=== PATIENT | male | born 1975 | race Caucasian/White ===

== ENCOUNTER 2016-10-10 13:16 | Emergency (ER) | payer BC ==
[~2016-10-10] VITALS: Ht 175.3 cm; Wt 84.5 kg
[2016-10-10 13:20] VITALS: TEMP 36.5; Ht 175.3 cm; Wt 84.5 kg
[2016-10-10] MEDS ORDERED: LISI-461 PO (13:30)
[2016-10-10] MEDS ORDERED: SERT-234 PO (13:31)
[2016-10-10] MEDS ORDERED: ONDANSETRON INJ 2 MG/ML 2 ML VIAL IV STA (14:20)
[2016-10-10] MEDS ORDERED: SODIUM CHLORIDE 0.9% 1000ML 1,000 ML IV STA (14:20)
[2016-10-10] MEDS ORDERED: MoRPHine SULFATE 4 MG/ML 1 ML CARP\\VIAL ONE (14:28)
[2016-10-10] MEDS ORDERED: OPTIRAY 320 IV PRN (14:30)
[2016-10-10] MEDS ORDERED: MoRPHine SULFATE 10 MG/ML CARP/VIAL IV PRN (14:30)
[2016-10-10 14:41] LABS: BASO % 0.5 %; BASO ABS # 0.03 K/uL (0-0.2); COMPLETE YES; HEMATOCRIT 45.4 % (42-52); IG% 0.2 %; LYMPH % 26.5 %; LYMPH ABS # 1.76 K/uL (1.2-3.4); MEAN CELL VOLUME 88.8 fL (80-100); MEAN CORPUSCULAR HEMOGLOBIN 29.5 pg (25-34); MEAN CORPUSCULAR HGB CONC 33.3 g/dl (32-36); MEAN PLATELET VOLUME 10.6 fL (7.4-10.4); MONO % 7.7 %; NEUT % 62.1 %; PLATELET COUNT 205 K/uL (130-400); RED BLOOD COUNT 5.11 M/uL (4.7-6.1); WHITE BLOOD COUNT 6.65 K/uL (4.8-10.8)
[2016-10-10 14:59] LABS: BUN/CREATININE RATIO 9.4 (10-20); CALCIUM 8.6 mg/dl (8.5-10.1); CREATININE 1.2 mg/dl (0.60-1.40)
[2016-10-10 15:04] LABS: URINE APPEARANCE CLEAR (CLEAR); URINE BILIRUBIN NEG (NEG); URINE COLOR DK YELLOW; URINE NITRITE NEG (NEG); URINE SPECIFIC GRAVITY 1.026 (1.000-1.030); UROBILINOGEN NEG (NEG)
[2016-10-10 15:06] LABS: MANUAL MICROSCOPIC REQUIRED? NO; REVIEW REQ? NO
[2016-10-10 15:15] LABS: POTASSIUM 3.6 mmol/L (3.5-5.1)
--- NOTE | 2016-10-10 17:54 | DIAGNOSTIC IMAGING REPORT ---
CT OF THE ABDOMEN AND PELVIS WITH CONTRAST CLINICAL HISTORY: Abdominal pain. COMPARISON STUDY: None. TECHNIQUE: Following IV administration of 92 mL of Optiray-320, axial images of the abdomen and pelvis were obtained from the lung bases to the proximal femurs. Images were reviewed in the axial, sagittal, and coronal planes. IV contrast was administered without complication. Oral contrast was administered. CT DOSE: 394.18 mGy.cm FINDINGS: Lung bases are clear. The liver, spleen, adrenal glands, right kidney and pancreas are normal. A 3 mm hyperdensity within the upper aspect of the left renal sinus suggests a calculus. Excreted contrast could appear similar although is considered less likely. There are no ureteral calculi. There is no hydronephrosis. The caliber and wall thickness of small and large bowel are normal. The appendix is normal. There is no evidence for a bowel obstruction. There is no lymphadenopathy. Skeletal structures are unremarkable. Major vasculature of the abdomen and pelvis is patent. IMPRESSION: 1. No acute process within the abdomen or pelvis. Normal appendix. 2. Probable 3 mm left renal calculus. No ureteral calculi. Electronically signed by: Reji Babcock M.D. 10/10/2016 5:53 PM Dictated Date/Time: 10/10/2016 5:48 PM
[2016-10-10 18:52] VITALS: BP 130/71; PULSE 75; O2SAT 97
--- NOTE | 2016-10-10 22:10 | EMERGENCY ROOM VISIT NOTE ---
ED Visit Note First contact with patient: 14:09 Chief Complaint: Abdominal pain. History of Present Illness: Mr. Cr is a 41 year-old white male who ambulates into the ED complaining of right lower quadrant abdominal pain. Historically patient reports GERD symptoms which is easily controlled with OTC Nexium. He denies any previous abdominal surgeries. Patient reports he was awoken from sleep at approximately 6 AM, approximately 6ours before he arrived in the ED, with an acute onset of mild right lower quadrant abdominal pain just medial to McBurney's point. Since that time his pain has been constant but has gradually increased in intensity. Currently he describes his pain as a sharp/stabbing sensation. He currently rates his discomfort 7/10. His pain is slightly radiating through into the right lower back. His pain worsens with palpation. He has not identified any alleviating factors related to the pain. He has not taken medication for pain prior to arrival at the hospital. He reports intermittently he has been nauseated but has not vomited and he has been having a mild headache. Patient denies fevers, chills, sweats, skin eruptions, skin color changes, upper respiratory tract symptoms, shortness of breath, chest pain, diarrhea, constipation, rectal bleeding, black/tarry stools, urinary symptoms, hematuria, testicular pain, flank pain. Review of Systems: As noted above in history of present illness. All body systems were reviewed and found to be negative as noted above. Past Medical History: Hypertension. Current Medications: Lisinopril, Zoloft. Allergies to Medications: Patient denies. Social History: Patient is currently employed; he lives with his and feels safe in his home environment; patient denies tobacco use. Physical Examination: Vital Signs: Date Time Temp Pulse Resp B/P (MAP) Pulse Ox O2 Delivery O2 Flow Rate FiO2 10/10/16 18:52 75 18 130/71 97 10/10/16 17:10 67 18 118/80 98 Room Air 10/10/16 15:11 84 18 129/87 98 Room Air 10/10/16 14:13 74 10/10/16 13:20 36.5 102 18 155/104 97 Room Air GENERAL: 41-year-old male in mild to moderate distress due to pain, nontoxic- appearing, afebrile and hemodynamically stable. NEUROLOGICAL: Awake, alert and oriented to person, place and time. Answering questions appropriately and following commands. Normal gait. Good hand eye coordination. SKIN: Warm, dry and pink. No soft tissue eruptions or trauma noted. HEENT: Atraumatic and normocephalic. PERRLA. Sclera white and conjunctiva pink. Airway patent. Speech normal. No lymphadenopathy. Trachea midline. No jugular venous distention. BACK: No tenderness over the bony spine. No tenderness in the paraspinous muscles of the right lower back where he indicates his pain is radiating. No CVA tenderness. THORAX: Lungs sounds are clear to auscultation and equal bilaterally with symmetrical chest wall. No wheezing, rales or rhonchi. No crepitus, tenderness , subcutaneous air or deformities noted. HEART: Regular rate and rhythm. No gallops, rubs or murmurs are appreciated. ABDOMEN: Flat and soft with moderate tenderness over McBurney's point with minimal guarding. Positive Rosvig sign. Negative feel tap. Positive bowel sounds in all quadrants. No rigidity or organomegaly. EXTREMITIES: Moves all extremities well on command and with purpose. All distal neurovascular statuses are intact and equal bilaterally. ED Course: Patient is assessed as noted above. Patient's medication list was reviewed. Laboratory Testing: Test 10/10/16 13:50 10/10/16 14:40 Range/Units White Blood Count 6.65 4.8-10.8 K/uL Red Blood Count 5.11 4.7-6.1 M/uL Hemoglobin 15.1 14.0-18.0 g/dL Hematocrit 45.4 42-52 % Mean Corpuscular Volume 88.8 80-100 fL Mean Corpuscular Hemoglobin 29.5 25-34 pg Mean Corpuscular Hemoglobin Concent 33.3 32-36 g/dl Platelet Count 205 130-400 K/uL Mean Platelet Volume 10.6 7.4-10.4 fL Neutrophils (%) (Auto) 62.1 % Lymphocytes (%) (Auto) 26.5 % Monocytes (%) (Auto) 7.7 % Eosinophils (%) (Auto) 3.0 % Basophils (%) (Auto) 0.5 % Neutrophils # (Auto) 4.14 1.4-6.5 K/uL Lymphocytes # (Auto) 1.76 1.2-3.4 K/uL Monocytes # (Auto) 0.51 0.11-0.59 K/uL Eosinophils # (Auto) 0.20 0-0.5 K/uL Basophils # (Auto) 0.03 0-0.2 K/uL RDW Standard Deviation 42.4 36.4-46.3 fL RDW Coefficient of Variation 13.0 11.5-14.5 % Immature Granulocyte % (Auto) 0.2 % Immature Granulocyte # (Auto) 0.01 0.00-0.02 K/uL Sodium Level 144 136-145 mmol/L Potassium Level 3.6 3.5-5.1 mmol/L Chloride Level 107 98-107 mmol/L Carbon Dioxide Level 26 21-32 mmol/L Anion Gap 11.0 3-11 mmol/L Blood Urea Nitrogen 11 7-18 mg/dl Creatinine 1.20 0.60-1.40 mg/dl Est Creatinine Clear Calc Drug Dose 81.0 ml/min Estimated GFR () 86.5 Estimated GFR (Non- 74.7 BUN/Creatinine Ratio 9.4 10-20 Random Glucose 91 70-99 mg/dl Calcium Level 8.6 8.5-10.1 mg/dl Total Bilirubin 0.5 0.2-1 mg/dl Direct Bilirubin 0.1 0-0.2 mg/dl Aspartate Amino Transf (AST/SGOT) 17 15-37 U/L Alanine Aminotransferase (ALT/SGPT) 29 12-78 U/L Alkaline Phosphatase 60 45-117 U/L Total Protein 8.6 6.4-8.2 gm/dl Albumin 5.0 3.4-5.0 gm/dl Lipase 135 73-393 U/L Urine Color DK YELLOW Urine Appearance CLEAR CLEAR Urine pH 5.0 4.5-7.5 Urine Specific [place] 1.026 1.000-1.030 Urine Protein NEG NEG Urine Glucose (UA) NEG NEG Urine Ketones NEG NEG Urine Occult Blood NEG NEG Urine Nitrite NEG NEG Urine Bilirubin NEG NEG Urine Urobilinogen NEG NEG Urine Leukocyte Esterase NEG NEG Contrast Abdominal/Pelvic CT: Was reviewed by myself and read by the radiologist showing a 3 mm hyperdensity within the upper aspect of the left renal sinus suggestive of calculus, no ureter calculi, no hydronephrosis, normal -appearing liver, spleen, adrenal glands, right kidney and pancreas wall thickness in caliber of small and large bowel are normal. Normal-appearing appendix. No evidence of bowel obstruction. No lymphadenopathy, skeletal structures are unremarkable and major vascularity of the abdomen and pelvis is patent. Patient was hydrated with normal saline and he received a total of 8 mg of morphine IV for pain and 4 mg of Zofran IV. Patient was reassessed multiple times during his stay in the emergency department. Patient's case was reviewed with Dr. Bhakta; we agreed on diagnostic approach, treatment, disposition and plan. Patient was educated about today's findings and instructed on his treatment plan ; he verbalizes understanding and agreement with this plan. Clinical Impression: Acute right lower quadrant abdominal pain Decision-Making: Initially my differential diagnosis I considered appendicitis, constipation, bowel obstruction, kidney stone, testicular torsion and other causes. Disposition: Patient discharged home in stable condition accompanied by his ; prior to departure he was reassessed and subjectively reported he was feeling much better and rated his discomfort 4/10. Plan: Comfort measures were discussed with the patient. I did feel there was a slight increase in fecal material in the right side of the colon so he was encouraged to increase clear fluids, increase dietary fiber and possibly start using a stool softener. Patient was encouraged to follow-up with personal physician for recheck in 2-3 days. Patient was encouraged return the ED for worsening symptoms, fevers, uncontrolled vomiting, diarrhea, rectal bleeding, black/tarry stools, urinary symptoms, hematuria or any new/concerning symptoms.
== END 2016-10-10 18:53 | disposition home or self-care (01) ==
LOC: C.EDB 13:19 → C.EDC 18:53
DX: R10.31 Right lower quadrant pain (principal); I10 Essential (primary) hypertension